=== PATIENT | female | born 1995 | race African-American/Black ===

== ENCOUNTER 2023-06-30 21:43 | Emergency (ER) | payer BC, OTHER ==
[2023-06-30 21:49] VITALS: BP 143/91; PULSE 95; RESP 18; TEMP 98.1; BMI 50.1
[2023-06-30] MEDS ORDERED: KETOROLAC TROMETHAMINE 30 MG/1 ML VIAL IM ONE (22:34)
[2023-06-30] MEDS ORDERED: KETOROLAC TROMETHAMINE 30 MG/1 ML VIAL ONE (22:44)
== END 2023-06-30 23:10 | disposition home or self-care (01) ==
LOC: JERFT 21:43
DX: M54.41 Lumbago with sciatica, right side (principal)
CPT/HCPCS: 99282-25

== ENCOUNTER 2024-04-09 18:32 | Emergency (ER) | payer BC, OTHER ==
[2024-04-09 18:42] VITALS: RESP 18; TEMP 98; BMI 50.1
[2024-04-09] MEDS ORDERED: ONDANSETRON 4 MG/2 ML VIAL ONE (20:12)
[2024-04-09] MEDS ORDERED: FAMOTIDINE 20 MG TABLET ONE (20:19)
[2024-04-09] MEDS ORDERED: MAG HYDROX/AL HYDROX/SIMETH 30 ML UNIT-DOSE CUP ONE (20:19)
[2024-04-09] MEDS ORDERED: ACETAMINOPHEN INJECTION 100 ML ONE (20:19)
[2024-04-09 20:21] LABS: HEMATOCRIT 40.1 % (32.4-45.2); HEMOGLOBIN 12.6 GM/dL (10.7-15.3); LYMPH % 37.1 % (8-40); MCH 20.5 pg (25.7-33.7); MCHC 31.4 g/dl (32.0-36.0); MEAN CELL VOLUME 65.1 fl (80-96); MEAN PLT VOLUME 9.7 fl (7.5-11.1); NEUT % 51.9 % (42.8-82.8); PLATELET COUNT 236 10^3/uL (134-434); RBC 6.16 M/mm3 (3.60-5.2); RDW 19.1 % (11.6-15.6); WHITE BLOOD COUNT 8.2 K/mm3 (4.0-10.0)
[2024-04-09 20:24] LABS: VENOUS BASE EXCESS -4.4 mmol/L (-2-2); VENOUS O2 SATURATION 82.2 % (70-80); VENOUS PH 7.352 (7.310-7.410)
[2024-04-09] MEDS: ONDANSETRON 4 MG/2 ML VIAL IVPUSH ONE (20:32)
[2024-04-09] MEDS: ACETAMINOPHEN 1000 MG/100 ML BAG IVPB ONE (20:32)
[2024-04-09] MEDS: LACTATED RINGERS SOLUTION 1000 ML INFUS.BAG IV ONE (20:32)
[2024-04-09 20:41] LABS: EPI CELLS 36 /uL (0-25.1); HYALINE CASTS 2 /uL (0-3.1); PH,URINE 5.5 (5.0-8.0); URINE APPEARANCE CLEAR; URINE BACTERIA 341 /uL (0-1359); URINE BILIRUBIN NEGATIVE (NEGATIVE); URINE COLOR YELLOW; URINE GLUCOSE (UA) 3+ (NEGATIVE); URINE KETONE 4+ (NEGATIVE); URINE LEUK ESTERASE NEGATIVE (NEGATIVE); URINE NITRITE NEGATIVE (NEGATIVE); URINE PROTEIN 2+ (NEGATIVE); URINE RBC 196 /uL (0-23.9); URINE UROBILINOGEN 0.2 mg/dL (0.2-1.0)
[2024-04-09 20:46] LABS: ANISOCYTOSIS 3+; MACROCYTOSIS 0; OVALOCYTE 1+; TARGET CELLS 1+; TEAR DROP CELLS 2+
[2024-04-09] MEDS: FAMOTIDINE 20 MG TABLET PO ONE (20:46)
[2024-04-09] MEDS: MAG HYDROX/AL HYDROX/SIMETH 30 ML UNIT-DOSE CUP PO ONE (20:46)
[2024-04-09 21:05] LABS: POTASSIUM 4.9 mmol/L (3.5-5.1)
[2024-04-09 21:08] LABS: ALBUMIN 3.9 g/dl (3.4-5.0); BLOOD UREA NITROGEN 8.1 mg/dL (7-18); CALCIUM 9.7 mg/dL (8.5-10.1); MAGNESIUM 2.2 mg/dL (1.8-2.4)
[2024-04-09 21:11] LABS: CREATININE 0.8 mg/dL (0.55-1.3)
[2024-04-09 21:13] LABS: BILIRUBIN,TOTAL 0.5 mg/dL (0.2-1); TOT PROT 7.8 g/dl (6.4-8.2)
[2024-04-09] MEDS: SODIUM CHLORIDE 0.9% 500 ML INFUS.BAG IV ONE (23:40)
[2024-04-09 23:41] VITALS: BP 126/63; PULSE 92
== END 2024-04-10 03:24 | disposition home or self-care (01) ==
LOC: JER 18:32
PROC: 3E033NZ Introduction of Analgesics, Hypnotics, Sedatives into Peripheral Vein, Percutaneous Approach (ICD-10-PCS; principal; 2024-04-09)
DX: E11.9 Type 2 diabetes mellitus without complications (principal); R11.2 Nausea with vomiting, unspecified; R06.02 Shortness of breath
CPT/HCPCS: 36415; 71045-TC-FY; 76705-TC; 80053; 81003; 82010; 82803; 82962; 83690; 83735; 85025; 93005; 93010; 99285-25; J0131